=== PATIENT | female | born 2000 | race Caucasian/White ===

== ENCOUNTER 2024-10-19 22:19 | Emergency (ER) | payer OTHER, SELFPAY ==
--- OUTSIDE RECORDS SUMMARY | 2020-08-23 09:45 | XMS_ITS | Continuity of Care Document ---
Author Organization [facility] Address [address] [place] [address] Phone Care Team Providers Care Land Inspector Name Role Phone Malcolm Morley Unavailable Unavailable Procedures Procedure Date Pfizer COVID Vaccine Admin Dose 2 COVID-19 Pfizer Pfizer COVID Vaccine Admin Dose 1 COVID-19 Pfizer Advance Directives Directive Yes / No Effective Date File Name No Information Encounters Encounter Description Practice Location Reason(s) For Visit Diagnoses Date Provider Providers Copied on Encounter [facility], [address], [place], [id number], tel:[phone] [facility] No Information Eugenia Garcia. [address], [place], [id number], [place]. tel:[phone] [facility], [address], [place], [id number], tel:[phone] [facility] No Information Eugenia Garcia. [address], [place], [id number], [place]. tel:[phone] Family History Family Member Type Diagnosis Age At Onset No Information Immunizations Vaccine Date Status Comments Pfizer COVID administered Source: New Imm unization Record Pfizer COVID administered Source: New Imm unization Record Payers Payer name Insurance type Covered democrat ID Authoriza tion(s) No Information Social History Type Description Quantity Date Captured Comments Alcohol Use Details Unknown Caffeine Use Details Unknown Tobacco Use Status No Information Smoking Status No Information Sex Female Sexual Orientation Straight or heterosexual Gender Identity Female Chief Complaint And Reason For Visit No Information Reason For Referral Reason For Referral No Information History Of Present Illness Encounter Date Complaint History Of Prese nt Illness No Information Functional Status Date Functional Assessmen t No Information Instructions Date Instruction Additional Infor mation No Information Assessments Type Assessment Date No Information Patient Care Teams Name Effective Dates (start - stop) Status Members No Information
[2024-10-19 22:22] VITALS: BP 129/76; PULSE 109; TEMP 36.9; O2SAT 98
--- NOTE | 2024-10-19 22:33 | PC.NURSE ---
Red, slightly raised rash to bilateral upper thighs, abdomen, chest and armpits. Started initially on thighs this morning, then after applying cream spread to other areas about 2 hours ago. Patient is being treated for strep throat with Amoxicillin. She came to ED after being told by a friend's family member that her rash looked like Measles and she should be seen right away. Patient did not take any Benadryl prior to coming to ED.
[2024-10-19 22:36] VITALS: O2SAT 98
--- NOTE | 2024-10-19 22:41 | ED_ITS ---
HPI - Skin/Abscess/Foreign Bdy General Chief complaint: Skin/Abscess/Foreign Body Stated complaint: RASH Time Seen by Provider: 10/19/24 22:31 Source: patient Mode of arrival: walk-in Limitations: no limitations History of Present Illness HPI narrative: patient treated with amoxicillin last week for strep throat. States her throat feels better. Rash started last PM and is now more diffuse. Mild itch. No pain or fever. throat not sore but she has a cough. Not short of breath Related Data Home Medications �Medication �Instructions �Recorded �Confirmed amoxicillin 500 mg capsule mg 10/19/24 Allergies Allergy/AdvReac Type Severity Reaction Status Date / Time No Known Drug Allergies Allergy Verified 10/19/24 22:29 Review of Systems ROS Status of ROS 10 or more systems reviewed and unremark able except as noted in history and below PFSH PFSH Social History Little interest or pleasure in doing things: not at all Feeling down, depressed, or hopeless: not at all Exam Constitutional Vital Signs, click to edit/add: Last Vital Signs Temp 98.4 F 10/19/24 22:22 Pulse 109 H 10/19/24 22:22 Resp 18 10/19/24 22:22 BP 129/76 10/19/24 22:22 Pulse Ox 98 10/19/24 22:36 O2 Del Method Room Air 10/19/24 22:36 Common normals: no apparent distress, average body habitus, oriented x3, no field itations, healthy appearing, alert and well nourished [facility] Common normals: normocephalic and head/scalp atraumatic Eye Common normals: PERRL and EOMs intact bilaterally Respiratory Common normals: normal respiratory effort, no retractions, no use of accessory muscles and clear to auscultation bilaterally Cardio Common normals: S1 normal heart sound and S2 normal heart sound Rate: tachycardic Extremity Other: urticarial rash on her thighs and trunk. Neuro Common normals: oriented x3, CN's II-XII intact bilaterally, moves all extremities and no focal motor deficits Psych Appearance: grossly normal Course Vital Signs Vital signs: Vital Signs Temperature 98.4 F 10/19/24 22:22 Pulse Rate 109 H 10/19/24 22:22 Respiratory Rate 18 10/19/24 22:22 Blood Pressure 129/76 10/19/24 22:22 Pulse Oximetry 98 10/19/24 22:22 Oxygen Delivery Method Room Air 10/19/24 22:22 Temperature 98.4 F 10/19/24 22:22 Pulse Rate 109 H 10/19/24 22:22 Respiratory Rate 18 10/19/24 22:22 Blood Pressure 129/76 10/19/24 22:22 Pulse Oximetry 98 10/19/24 22:36 Oxygen Delivery Method Room Air 10/19/24 22:36 MDM - Skin/Abscess/Foreign Bdy MDM Narrative Medical decision making narrative: patient presents with what seems to be an allergic rash. Likely from Amoxicillin that she is on to treat strep throat that was diagnosed one week ago. No longer has a sore throat. Advised to d/c amoxicillin. Will plan treatment with medrol dosepak and benadryl Discharge Plan Discharge Chief Complaint: Skin/Abscess/Foreign Body Clinical Impression: Allergic drug rash Patient Disposition: Home, Self-Care Prescriptions / Home Meds: No Action amoxicillin 500 mg capsule Print Language: Japanese Instructions: Acute Rash (ED) Additional Instructions: discontinue amoxicillin. Follow up with your doctor in next 2-3 days for recheck. use Benadryl 25-50mg three times a day for rash Referrals: VENUS SHANNON [Primary Care Provider, Family Practice] - 1 week Discharge Date/Time: 10/19/24 23:15
--- OUTSIDE RECORDS SUMMARY | 2024-10-19 22:44 | XMS_ITS | Encounter Summary ---
Author Organization [facility] Address [address] [place] [address] Care Team Providers Care Furnace Puncher Name Role Phone Hayder Andrews MD Primary Care Provider Akilah Sanchez HUMAN RESOURCES MGR Unavailable [phone] Reason for Visit * Reason Comments Med Change Request Encounter Details Date Type Department Care Team (Late Contact Info) Description 10/16/2024 Refill [facility] [address] [place] [address] Akilah Sanchez, HUMAN RESOURCES MGR [address] [place] [address] Cough in adult; Sore throat Social History Tobacco Use Types Packs/Day Years Used Date Smoking Tobacco: Never Smokeless Tobacco: Never Alcohol Use Standard Drinks/Week Comments Never 0 (1 standard drink = 0.6 oz pur e alcohol) AUDIT-C Answer Date Recorded Q1: How often do you have a drink containing alcohol? Never 01/07/2023 Q2: How many drinks containi ng alcohol do you have on a typical day when you are drinking? Patient does not drink Q3: How often do you have si x or more drinks on one occasion? Never 01/07/2023 PHQ-2 Answer Date Recorded Patient Health Questionnaire-2 Score 0 12/12/2023 Comments No Sex and Gender Information Value Date Recorded Sex Assigned at Not on file Legal Sex Female 6:46 PM EDT Gender Identity Not on file Sexual Orientation Not on file documented as of this encounter Plan of Treatment Not on file documented as of this encounter Visit Diagnoses Diagnosis Cough in adult Sore throat Acute pharyngitis documented in this encounter Care Teams Furnace Puncher Relationship Specialty Start Date End Date Hayder Andrews MD [address] [place] [address] PCP - General Family Medicine 09/03/22 Akilah Sanchez NP [address] [place] [address] Nurse Practitioner Pulmonary Disease 09/19/22 documented as of this encounter
--- OUTSIDE RECORDS SUMMARY | 2024-10-19 22:44 | XMS_ITS | Encounter Summary ---
Author Organization [facility] Address [address] [place] [address] Care Team Providers Care Double Needle Operator Name Role Phone Hayder Andrews MD Primary Care Provider [phone] Deandra Neil ECONOMIC MANAGER Unavailable Akilah Sanchez ECONOMIC MANAGER Unavailable [phone] Encounter Details Date Type Department Care Team (Late st Contact Info) Description 05/29/2023 Abstract [facility] [address] [place] [address] Hayder Andrews MD [address] [place] [address] Social History Tobacco Use Types Packs/Day Years [...] Date Recorded Patient Health Questionnaire-2 Score 0 02/07/2023 Comments No Sex and Gender Information Value Date Recorded Sex Assigned at Not on file Legal Sex Female 6:46 PM EDT Gender Identity Not on file Sexual Orientation Not on file documented as of this encounter Plan of Treatment Not on file documented as of this encounter Visit Diagnoses Not on filedocumented in this encounter Care Teams Double Needle Operator Relationship Specialty Start Date End Date Hayder Andrews MD [address] [place] [address] PCP - General Family Medicine 09/03/22 Deandra Neil NP [address] [place] [address] Nurse Practitioner Family Medicine 09/19/22 10/09/24 Akilah Sanchez NP [address] [place] [address] Nurse Practitioner Pulmonary Disease 09/19/22 documented as of this encounter
--- OUTSIDE RECORDS SUMMARY | 2024-10-19 22:44 | XMS_ITS | Encounter Summary ---
Author Organization [facility] Address [address] [facility] [place] [address] Care Team Providers Care Health Systems Analyst Name Role Phone Hayder Andrews MD Primary Care Provider [phone] Deandra Neil LOCAL TELEPHONE OPERATOR Unavailable Akilah Sanchez LOCAL TELEPHONE OPERATOR Unavailable [phone] Encounter Details Date Type Department Care Team (Late st Contact Info) Description 09/03/2022 Abstract [facility] [address] [place] [address] Hayder Andrews MD [address] [place] [address] Social History Tobacco Use Types Packs/Day Years Used Date Smoking Tobacco: Never Assessed Comments Unknown Sex and Gender Information Value Date Recorded Sex Assigned at Not on file Legal Sex Female 6:46 PM EDT Gender Identity Not on file Sexual Orientation Not on file documented as of this encounter Plan of Treatment Not on file documented as of this encounter Visit Diagnoses Not on filedocumented in this encounter Care Teams Health Systems Analyst Relationship Specialty Start Date End Date Hayder Andrews MD [address] [place] [address] PCP - General Family Medicine 09/03/22 Deandra Neil NP [address] [place] [address] Nurse Practitioner Family Medicine 09/19/22 10/09/24 Akilah Sanchez NP [address] [place] [address] Nurse Practitioner Pulmonary Disease 09/19/22 documented as of this encounter
--- OUTSIDE RECORDS SUMMARY | 2024-10-19 22:44 | XMS_ITS | Clinical Summary ---
Author Organization [facility] Address [address] [place] [address] Phone Care Team Providers Care Ultrasound Supervisor Name Role Phone Lucille Schaeffer MD Primary Care Provider Social History Tobacco Use Types Packs/Day Years Used Date Smoking Tobacco: Never Assessed Comments Unknown Sex and Gender Information Value Date Recorded Sex Assigned at Not on file Legal Sex Female 3:44 PM EST Gender Identity Not on file Sexual Orientation Not on file Last Filed Vital Signs Vital Sign Reading Time Taken Comments Blood Pressure 116/74 01/05/2021 10:06 AM EDT Pulse 83 01/05/2021 10:06 AM EDT Temperature 36.3 C (97.3 F) 12/23/2019 2:27 PM EDT Respiratory Rate - - Oxygen Saturation 98% 01/05/2021 10:06 AM EDT Inhaled Oxygen Concentration - - Weight 60 kg (132 lb 4 oz) 01/05/2021 10:06 AM E DT Height 163.8 cm (5' 4.5 ) 01/05/2021 10:06 AM ED T Body Mass Index 22.35 01/05/2021 10:06 AM EDT Plan of Treatment Not on file Care Teams Ultrasound Supervisor Relationship Specialty Start Date End Date Lucille Schaeffer MD [address] [facility] [place] [address] PCP - General 12/27/16
--- OUTSIDE RECORDS SUMMARY | 2024-10-19 22:45 | XMS_ITS | Encounter Summary ---
Author Organization [facility] Address [address] [place] [address] Care Team Providers Care Teamsite Developer Name Role Phone Hayder Andrews MD Primary Care Provider [phone] Deandra Neil SOFTWARE TESTER Unavailable Akilah Sanchez SOFTWARE TESTER Unavailable [phone] Encounter Details Date Type Department Care Team (Late st Contact Info) Description 09/26/2023 Abstract [facility] [address] [place] [address] Deandra Neil NP [address] [facility] [address] [place] [address] Social History Tobacco Use Types Packs/Day Years [...] on filedocumented in this encounter Care Teams Teamsite Developer Relationship Specialty Start Date End Date Hayder Andrews MD [address] [place] [address] PCP - General Family Medicine 09/03/22 Deandra Neil NP [address] [place] [address] Nurse Practitioner Family Medicine 09/19/22 10/09/24 Akilah Sancehz NP [address] [place] [address] Nurse Practitioner Pulmonary Disease 09/19/22 documented as of this encounter
--- OUTSIDE RECORDS SUMMARY | 2024-10-19 22:45 | XMS_ITS | Clinical Summary ---
Author Organization [facility] Address [address] [place] [address] Care Team Providers Care Environmental Health Nurse Name Role Phone Hayder Andrews MD Primary Care Provider [phone] Akilah Sanchez JACK STRIP ASSEMBLER Unavailable [phone] Allergies No known active allergies Medications hydrOXYzine HCl (Atarax) 25 MG tablet Daily at bedtime 05/29/19 24 Active norethindrone-eth inyl estradiol (Junel 04/20) 1-20 MG-MCG tabletIndications :Family planning, BCP ( control pills) maintenance Take 1 tablet by mouth Daily 21 tablet 11 12/12/19 24 Active amphetamine-dextr oamphetamine (Adderall) 10 MG tabletIndications :Attention deficit disorder (ADD) without hyperactivity Take 1 tablet (10 mg) by mouth in the morning and 1 tablet (10 mg) before bedtime. 60 tablet 12/12/19 24 Active fluticasone (Flonase) 50 MCG/ACT nasal sprayIndications: Cough in adult,Sore throat Administer 2 sprays into each nostril Daily Shake gently. Before first use, prime pump. After use, clean tip and replace cap. 16 g 09/25/19 25 025 Active Loratadine 10 MG capsuleIndication s:Cough in adult,Sore throat Take 1 capsule by mouth Daily 30 capsule 2 09/25/19 25 025 Active ARIPiprazole (Abilify) 5 MG tabletIndications :Labile mood Take 1 tablet (5 mg) by mouth in the morning. 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 Generalized anxiety disorder 02/22/2021 Resolved Problems Problem Noted Date Diagnosed Date Resolved Date Menstrual cramp 12/12/2023 12/12/2023 Seasonal allergic rhinitis 12/12/2023 0 12/12/2023 Anxiety, generalized 10/31/2022 023 Panic attack 11/22/2021 01/17/2023 Attention deficit hyperactivity disorder 02/22/2021 10/31/2022 Encounters Date Type Department Care Team Description 10/16/2024 Refill [facility] [address] [place] [address] Akilah Sanchez, JACK STRIP ASSEMBLER Cough in adult; Sore throat 10/16/2024 Refill [facility] [address] [place] [address] Akilah Sanchez, JACK STRIP ASSEMBLER Cough in adult; Sore throat 09/24/2024 9:20 AM EDT Telemedicine [facility] [address] [place] [address] Akilah Sanchez, JACK STRIP ASSEMBLER Cough in adult (Primary Dx); Sore throat 09/24/2024 Travel from Last 3 Months Immunizations Immunization Administration Dates Next Due DTaP 11/08/2007 DTaP / Hep B / IPV 2002 DTaP, 5 pertussis antigens 10/28/2003,2002 ,2002 HPV 9-Valent 02/09/2021,01/05/2021 Hep B, Adolescent or Pediatric 2002,2002,2002 Hib (PRP-OMP) 01/07/2007,2002,2002 Hib (PRP-T) 2002 IPV 11/08/2007,2002,2002 Influenza, live, intranasal 12/21/2011 Influenza, seasonal, injectable 04/23/2016,01/19 MMR 11/08/2007,10/28/2003 Meningococcal MCV4O 12/23/2019 Meningococcal MCV4P 11/15/2014 Pneumococcal Conjugate PCV 7 10/28/2003,01/01/20 03,2002,2002 Tdap 11/15/2014 Varicella 11/08/2007,07/17/2003 Family History Medical History Relation Name Comments No Known Problems Brother Diabetes Father Mental illness Father Heart disease Maternal Grandfather Heart disease Maternal Grandmother Diabetes Mother Heart disease Mother Hyperlipidemia Mother Hypertension Mother Parkinsonism Paternal Grandfather Relation Name Status Comments Brother Alive Father Alive Maternal Grandfather Maternal Grandmother Mother Alive Paternal Grandfather Paternal Grandmother Social History Tobacco Use Types Packs/Day Years Used Date Smoking Tobacco: Never Smokeless Tobacco: Never Tobacco Cessation:Counseling Given: Not Answered Alcohol Use Standard Drinks/Week Comments Never 0 [...] Reading Time Taken Comments Blood Pressure 116/74 12/12/2023 2:26 PM EDT Pulse 79 12/12/2023 2:26 PM EDT Temperature 36.3 C (97.4 F) 12/12/2023 2:26 PM EDT Respiratory Rate 18 12/12/2023 2:26 PM EDT Oxygen Saturation 96% 12/12/2023 2:26 PM EDT Inhaled Oxygen Concentration - - Weight 76.2 kg (168 lb) 12/12/2023 2:26 PM EDT Height 167.6 cm (5' 6 ) 12/12/2023 2:26 PM EDT Body Mass Index 27.12 12/12/2023 2:26 PM EDT Plan of Treatment Health Maintenance Due Date Last Done Comments Influenza Vaccine (#1) 2024 04/23/2016, 2011, 01/20/2004 Insurance [employer] Care Teams Environmental Health Nurse Relationship Specialty Start Date End Date Hayder Andrews MD [address] [place] [address] PCP - General Family Medicine 09/03/22 Akilah Sanchez, JACK STRIP ASSEMBLER [address] [place] [address] Nurse Practitioner Pulmonary Disease 09/19/22
--- OUTSIDE RECORDS SUMMARY | 2024-10-19 22:45 | XMS_ITS | Patient Health Record ---
Author Organization [facility] Address [address] [place] [address] Care Team Providers Care Aeronautical Engineer Name Role Phone Hayder Andrews Primary Care Provider Unavailabl e Allergies No Known Allergies Reason For Referral No Information Medications Medication SIG (Take, Route, Fr equency, Duration) Notes Start Date End Date Status Sertraline HCl 25 MG 1 tablet Orally Once a day Active Adderall Active Immunizations Vaccine Route Administration Date Status Comme nts [id number] Fluzone Quad PFS (0.5m L Admin) 6 months & older Unknown 09/27/2022 Refused Social History Tobacco Use: Social History Observation Description Date Details (start date - stop date) Never Smoker NA - NA Tobacco Use Question Answer Notes Are you a Never smoker Problems Problem Type SNOMED Code ICD Code Onset Dates Problem Status W/U Status Risk Notes Problem Anxiety (31143323) Anxiety (F41.9) Active confirmed Problem 20475954 Anxiety, generalized (F41.1) Active confirmed Problem Attention deficit hyperactivity disorder (419710502) ADHD (F90.9) Active confirmed Plan Of Treatment No Information Insurance Providers Payer Name Payer Address Payer Phone Subscriber Number Group Number Insured Name Patient Relationship to Insured Coverage Start Date Coverage End Date [employer] Benefits [address] [address] [place] [address] [id number] ALEXANDRE DURHAM Self - patient is the insured Medical (General) History Medical History History ICD Code ADHD F90.9 Anxiety F41.9
--- OUTSIDE RECORDS SUMMARY | 2024-10-19 22:45 | XMS_ITS | Encounter Summary ---
Author Organization [facility] Address [address] [place] [address] Care Team Providers Care Destination Specialist Name Role Phone Hayder Andrews MD Primary Care Provider [phone] Deandra Neil EGG CANDLER Unavailable Akilah Sanchez EGG CANDLER Unavailable [phone] Encounter Details Date Type Department Care Team (Late st Contact Info) Description 09/26/2023 Abstract [facility] [address] [place] [address] Deandra Neil NP [address] [facility] [address] [place] [address] Social History Tobacco Use Types Packs/Day Years [...] on filedocumented in this encounter Care Teams Destination Specialist Relationship Specialty Start Date End Date Hayder Andrews MD [address] [place] [address] PCP - General Family Medicine 09/03/22 Deandra Neil NP [address] [place] [address] Nurse Practitioner Family Medicine 09/19/22 10/09/24 Akilah Sanchez NP [address] [place] [address] Nurse Practitioner Pulmonary Disease 09/19/22 documented as of this encounter
--- OUTSIDE RECORDS SUMMARY | 2024-10-19 22:45 | XMS_ITS | Encounter Summary ---
Author Organization [facility] Address [address] [place] [address] Care Team Providers Care Ornamental Rail Installer Name Role Phone Hayder Andrews MD Primary Care Provider [phone] Deandra Neil FAX MACHINE OPERATOR Unavailable Akilah Sanchez FAX MACHINE OPERATOR Unavailable [phone] Encounter Details Date Type Department Care Team (Late st Contact Info) Description 01/21/2024 Abstract [facility] [address] [place] [address] Deandra Neil NP [address] [facility] [address] [place] [address] Social History Tobacco Use Types Packs/Day Years [...] on filedocumented in this encounter Care Teams Ornamental Rail Installer Relationship Specialty Start Date End Date Hayder Andrews MD [address] [place] [address] PCP - General Family Medicine 09/03/22 Deandra Neil NP [address] [place] [address] Nurse Practitioner Family Medicine 09/19/22 10/09/24 Akilah Sanchez NP [address] [place] [address] Nurse Practitioner Pulmonary Disease 09/19/22 documented as of this encounter
--- OUTSIDE RECORDS SUMMARY | 2024-10-19 22:45 | XMS_ITS | Encounter Summary ---
Author Organization [facility] Address [address] [place] [address] Care Team Providers Care Slider Assembler Name Role Phone Hayder Andrews MD Primary Care Provider [phone] Akilah Sanchez COMMUNITY CHEST OFFICER Unavailable [phone] Reason for Visit * Reason Comments Med Change Request Encounter Details Date Type Department Care Team (Late Contact Info) Description 10/16/2024 Refill [facility] [address] [place] [address] Akilah Sanchez, COMMUNITY CHEST OFFICER [address] [place] [address] Cough in adult; Sore throat [...] pharyngitis documented in this encounter Care Teams Slider Assembler Relationship Specialty Start Date End Date Hayder Andrews MD [address] [place] [address] PCP - General Family Medicine 09/03/22 Akilah Sanchez NP [address] [place] [address] Nurse Practitioner Pulmonary Disease 09/19/22 documented as of this encounter
[2024-10-19] MEDS: PREDNISONE 20 MG TABLET 40 MG PO (23:08)
[2024-10-19] MEDS: DIPHENHYDRAMINE HCL 25 MG CAPSULE 50 MG PO (23:08)
== END 2024-10-19 23:15 | disposition home or self-care (01) ==
PROVIDERS: Emergency Provider Internal Medicine; PCP Family Medicine
DX: L27.0 Generalized skin eruption due to drugs and medicaments taken internally (principal); T36.0X5A Adverse effect of penicillins, initial encounter
CPT/HCPCS: 99283; J7512